=== PATIENT | female | born 1975 | race Caucasian/White ===

== ENCOUNTER 2022-05-14 07:03 | Day surgery (SDC) | payer MEDICAID ==
[~2022-05-14] VITALS: Ht 167.6 cm; Wt 116.1 kg
[2022-05-14 07:49] LABS: HCG,QUAL RESULT NEGATIVE (NEGATIVE)
[2022-05-14] MEDS ORDERED: BENZOCAINE 20% 0.5mL UD SPRAY MM ONE (10:21)
[2022-05-14] MEDS ORDERED: MEPERIDINE 100 MG INJ. 100 MG/ML VIAL ONE (10:21)
[2022-05-14] MEDS ORDERED: SIMETHICONE 40 MG/0.6 ML ML ONE (10:21)
[2022-05-14] MEDS ORDERED: MIDAZOLAM HCL 5 MG/5 ML VIAL ONE (10:23)
[2022-05-14 12:48] VITALS: BP_SYST 158
== END 2022-05-14 12:20 | disposition home or self-care (01) ==
LOC: SDS 07:03 → SMU 07:05 → SDS 12:20
PROVIDERS: ATTEND Internal Medicine
DX: K21.00 Gastro-esophageal reflux disease with esophagitis, without bleeding (principal); K29.50 Unspecified chronic gastritis without bleeding; K44.9 Diaphragmatic hernia without obstruction or gangrene; J45.909 Unspecified asthma, uncomplicated; I10 Essential (primary) hypertension; Z87.891 Personal history of nicotine dependence; Z90.49 Acquired absence of other specified parts of digestive tract; Z98.890 Other specified postprocedural states; Z79.899 Other long term (current) drug therapy; Z20.822 Contact with and (suspected) exposure to COVID-19
CPT/HCPCS: 36415 ×2; 43239; 87426; 84703; 88305; 88312; 88313; 99152; U0003; J2250; J2175